=== PATIENT | female | born 1960 | race Caucasian/White ===

== ENCOUNTER 2019-06-30 18:22 | Emergency (ER) | payer OTHER ==
[~2019-06-30] VITALS: Ht 160 cm; Wt 87.1 kg
--- NOTE | 2019-06-30 18:35 | NUR ---
PT PLACED IN BED 6.
[2019-06-30 18:38] VITALS: BP 154/89
[2019-06-30] MEDS ORDERED: KETOROLAC 60 MG/2 ML VIAL IM ONE (19:05)
[2019-06-30 19:16] LABS: BILIRUBIN,URINE NEGATIVE (NEGATIVE); BLOOD, URINE 3+ (NEGATIVE); COLOR,URINE YELLOW (YELLOW); LEUKOCYTE ESTERASE ,URINE 1+ (NEGATIVE); NITRITE, URINE NEGATIVE (NEGATIVE); UGLUCOSE NEGATIVE (NEGATIVE)
[2019-06-30 19:18] LABS: APPEARANCE,URINE HAZY (CLEAR)
--- NOTE | 2019-06-30 19:29 | NUR ---
PT RETURN FROM CT
--- NOTE | 2019-06-30 19:30 | NUR ---
59Y FEMALE, PRESENTED TO ED, C/O LT ABD PAIN RADIATING TO MID LOWER BACK X3DAYS, PT STATED "IT FELT LIKE I HAVE UTI LAST SUNDAY BUT TODAY I FELT THE PAIN GOING TO MY MIDLOWER BACK" THROBBING PAIN ON/OFF 05/24 THAT WORSEN WHILE SITTING. PT REPORTED TAKING IBUPROFEN WITH NO RELIEF. DENIES N/V, -FEVER/CHILLS. ED CHANTELLE BOWSER MADE AWARE, WILL CONTINUE TO MONITOR CLOSELY.
[2019-06-30 19:36] LABS: RBC,URINE 0-5 /HPF (0-5); WBC,URINE 20-60 /HPF (0-5)
[2019-06-30 20:38] VITALS: BP 142/76
--- NOTE | 2019-06-30 20:38 | NUR ---
Patient discharged with v/s stable. Written and verbal after care instructions given and explained. Patient alert, oriented and verbalized understanding of instructions. Ambulatory with steady gait. All questions addressed prior to discharge. ID band removed. Patient advised to follow up with PMD. Rx of KEFLEX 500MG AND IBUPROFEN 600MG given. Patient educated on indication of medication including possible reaction and side effects. Patient also informed re:good hydration for UTI and s/s to report and seek medical help. Opportunity to ask questions provided and answered.
== END 2019-06-30 20:28 | disposition home or self-care (01) ==
LOC: MED 18:22
DX: K57.30 Diverticulosis of large intestine without perforation or abscess without bleeding (principal); N39.0 Urinary tract infection, site not specified; Z90.49 Acquired absence of other specified parts of digestive tract; Z98.890 Other specified postprocedural states
CPT/HCPCS: 74176; 81001; 81025; 87086; 87186; 96372; 99284; J1885